=== PATIENT | male | born 1975 | race American Indian/Alaskan Native ===

== ENCOUNTER 2017-08-11 15:47 | Emergency (ER) | payer OTHER ==
[2017-08-11 16:32] LABS: Basophils % (Auto) 0.8 % (0.0-1.8); Eosinophils % (Auto) 1.7 % (0.0-4.3); Hematocrit 46.4 % (35.5-45.6); Hemoglobin 15.6 gm/dl (11.8-15.2); Mean Corpuscular HGB Conc 34 % (32-34); Mean Corpuscular Hemoglobin 30 pg (28-32); Mean Corpuscular Volume 88 fl (84-94); Platelet Count 191 K/mm3 (140-440); Red Blood Count 5.27 M/mm3 (3.65-5.03); Red Cell Distribution Width 13.8 % (13.2-15.2); White Blood Count 8.7 K/mm3 (4.5-11.0)
[2017-08-11 18:44] LABS: Anion Gap 14 mmol/L; BUN/Creatinine Ratio 14; Blood Urea Nitrogen 17 mg/dL (9-20); Carbon Dioxide 29 mmol/L (22-30); Chloride 100.6 mmol/L (98-107); Glucose 95 mg/dL (75-100); Potassium 4.6 mmol/L (3.6-5.0); Sodium 139 mmol/L (137-145)
--- NOTE | 2017-08-11 21:42 | Emergency Department Report ---
ED General Adult HPI - General Chief complaint: High BP Stated complaint: HIGH BLOOD PRESSURE Time Seen by Provider: 08/11/17 21:31 Source: patient Mode of arrival: Ambulatory Limitations: No Limitations - History of Present Illness Initial comments: 42 YO MALE WITH H/O HYPERTENSION WHO RAN OUT OF MEDICATION 6 MONTHS AGO. HE WAS SEEN IN A CLINIC WITH BP 189/118 AND SENT HERE. BP 117/110 AND HR 125 IN TRIAGE. MD Complaint: HTN -: month(s) (6) Radiation: non-radiation Severity scale (0 -10): 0 Improves with: medication Worsens with: none Associated Symptoms: shortness of breath (INTERMITTENT) - Related Data Previous Rx's Medication Instructions Recorded Last Taken Type Norvasc 10 mg PO DAILY #90 08/11/17 Unknown Rx Allergies Allergy/AdvReac Type Severity Reaction Status Date / Time No Known Allergies Allergy Verified 08/11/17 15:54 ED Review of Systems ROS: Stated complaint: HIGH BLOOD PRESSURE Other details as noted in HPI Constitutional: denies: chills, fever Eyes: denies: eye pain, eye discharge, vision change ENT: denies: ear pain, throat pain Respiratory: denies: cough, shortness of breath, wheezing Cardiovascular: denies: chest pain, palpitations Endocrine: no symptoms reported Gastrointestinal: denies: abdominal pain, nausea, diarrhea Genitourinary: denies: urgency, dysuria Musculoskeletal: denies: back pain, joint swelling, arthralgia Skin: denies: rash, lesions Neurological: denies: headache, weakness, paresthesias Psychiatric: denies: anxiety, depression Hematological/Lymphatic: denies: easy bleeding, easy bruising ED Past Medical Hx - Past Medical History Previous Medical History?: Yes Hx Hypertension: Yes - Surgical History Past Surgical History?: No - Social History Smoking Status: Never Smoker Substance Use Type: None - Medications Home Medications: Home Medications Medication Instructions Recorded Confirmed Last Taken Type Norvasc 10 mg PO DAILY #90 08/11/17 Unknown Rx ED Physical Exam - General Limitations: No Limitations General appearance: alert, in no apparent distress - Head Head exam: Present: atraumatic, normocephalic - Eye Eye exam: Present: normal appearance - ENT ENT exam: Present: mucous membranes moist - Neck Neck exam: Present: normal inspection, full ROM - Respiratory Respiratory exam: Present: normal lung sounds bilaterally. Absent: respiratory distress, wheezes, rales - Cardiovascular Cardiovascular Exam: Present: regular rate, normal rhythm, normal heart sounds. Absent: systolic murmur, diastolic murmur, rubs, gallop - GI/Abdominal GI/Abdominal exam: Present: soft, normal bowel sounds - Rectal Rectal exam: Present: deferred - Extremities Exam Extremities exam: Present: normal inspection, full ROM - Back Exam Back exam: Present: normal inspection, full ROM - Neurological Exam Neurological exam: Present: alert, oriented X3 - Psychiatric Psychiatric exam: Present: normal affect, normal mood - Skin Skin exam: Present: warm, dry, intact, normal color. Absent: rash ED Course Vital Signs 08/11/17 08/11/17 08/11/17 15:54 17:09 18:25 Temperature 98.6 F 98.6 F Pulse Rate 125 H 114 H 89 Respiratory 18 16 16 Rate Blood Pressure 117/110 182/122 176/120 Blood Pressure [Left] O2 Sat by Pulse 100 99 95 Oximetry 08/11/17 08/11/17 08/11/17 18:30 18:38 19:00 Temperature 98.0 F Pulse Rate 85 90 86 Respiratory 24 22 18 Rate Blood Pressure 173/117 145/120 Blood Pressure 161/114 [Left] O2 Sat by Pulse 94 100 100 Oximetry 08/11/17 08/11/17 08/11/17 21:14 21:51 22:46 Temperature Pulse Rate 76 74 67 Respiratory 16 16 Rate Blood Pressure 160/111 Blood Pressure 148/111 162/114 [Left] O2 Sat by Pulse 100 99 Oximetry 08/11/17 23:12 Temperature Pulse Rate 82 Respiratory Rate Blood Pressure 162/118 Blood Pressure [Left] O2 Sat by Pulse Oximetry ED Medical Decision Making - Lab Data Result diagrams: 08/11/17 16:12 08/11/17 16:12 - EKG Data -: EKG Interpreted by Nc EKG shows normal: sinus rhythm Rate: tachycardia (RATE 103, LAD,LVH) - EKG Data 08/11/17 23:19 EKG #2:SINUS RHYTHM, INCOMPLETE RBBB,LAFB - Radiology Data Radiology results: report reviewed (CXR: NEGATIVE) - Medical Decision Making PT HAS 3 NEGATIVE CARDIAC ENZYME, NO CHEST PAIN AND NEGATIVE D-DIMER , NEGATIVE CXR, I WILL D/C HIM WITH FOLLOW UP WITH CLINIC. Critical care attestation.: If time is entered above; I have spent that time in minutes in the direct care of this critically ill patient, excluding procedure time. ED Disposition Clinical Impression: LVH (left ventricular hypertrophy), RBBB, LAFB (left anterior fascicular block) Hypertension Qualifiers: Hypertension type: unspecified secondary hypertension Qualified Code(s): I15.9 - Secondary hypertension, unspecified; I15 - Secondary hypertension Disposition: - TO HOME OR SELFCARE Is pt being admited?: No Does the pt Need Aspirin: No Condition: Stable Instructions: Hypertension (ED), Heart Block (ED) Additional Instructions: PLEASE TAKE GOOD CARE OF YOUR HEALTH ESPECIALLY HTN. PLEASE FOLLOW UP WITH YOUR DR. TAKE YOUR MEDICATION Prescriptions: Norvasc 10 mg PO DAILY #90 Referrals: PRIMARY CARE, [Primary Care Provider] - 3-5 Days Forms: Work/School Release Form(ED) Time of Disposition: 23:21
[2017-08-11] MEDS ORDERED: NORVASC PO ONE (21:46)
[2017-08-11] MEDS ORDERED: CATAPRES PO ONE ×2 (23:01→23:46)
--- NOTE | 2017-08-11 23:09 | XRay Report ---
FINAL REPORT PROCEDURE: XR CHEST 1V AP TECHNIQUE: Chest radiograph anteroposterior view. CPT 34954 HISTORY: TACHYCARDIA COMPARISON: No prior studies are available for comparison. FINDINGS: Heart: Normal. Mediastinum/Vessels: Normal. Lungs/Pleural space: Normal. Bony thorax: No acute osseous abnormality. Life support devices: None. IMPRESSION: No acute cardiopulmonary abnormality.
[2017-08-12 00:51] VITALS: BP 148/92
== END 2017-08-12 00:52 | disposition home or self-care (01) ==
LOC: ED 15:47
DX: I15.9 Secondary hypertension, unspecified (principal); I51.7 Cardiomegaly; I45.2 Bifascicular block
CPT/HCPCS: 36415; 71010; 80048; 84484; 85025; 85379; 93005; 93010; 99284